=== PATIENT | female | born 1960 | race Caucasian/White ===

== ENCOUNTER → 2018-12-30 | Outpatient (CLI) | payer OTHER | END | disposition home or self-care (01) | LOC: CFH 07:58 | PROVIDERS: ATTEND Internal Medicine Cardiovascular Disease | DX: I07.1 Rheumatic tricuspid insufficiency (principal); I10 Essential (primary) hypertension; I25.10 Atherosclerotic heart disease of native coronary artery without angina pectoris; E78.5 Hyperlipidemia, unspecified | CPT/HCPCS: 78452; 93017; 93306; A9502 ==

== ENCOUNTER → 2020-12-18 | Outpatient (CLI) | payer OTHER ==
[~2020-12-18] MED LIST: ASPI-963 PO; BUPR150T13 PO; CARV6.252 PO; DIPH25TA26 PO; EMPA10TA PO; ESTR0.5T PO; EVOL140P3 SQ; EZET10TA48 PO; HYDR-3237 PO; NIAC100035 PO; PROG100C10 PO; RAMI10CA59 PO; ROSU40TA22 PO
== END | disposition home or self-care (01) ==
LOC: CVU 13:18
PROVIDERS: ATTEND Internal Medicine Cardiovascular Disease
DX: I08.0 Rheumatic disorders of both mitral and aortic valves (principal); I25.10 Atherosclerotic heart disease of native coronary artery without angina pectoris; I10 Essential (primary) hypertension
CPT/HCPCS: 93308; 93321; 93325